=== PATIENT | female | born 1960 | race Caucasian/White ===

== ENCOUNTER → 2023-05-31 10:05 | Outpatient (REF) | payer OTHER, SELFPAY | LOC: PAVMRI 10:05 | PROVIDERS: ATTENDING PHYSICIAN Physician Assistant; FAMILY PHYSICIAN Family Medicine; REFERRING PHYSICIAN Orthopaedic Surgery | DX: M25.511 Pain in right shoulder (principal) | CPT/HCPCS: 73221 ==

== ENCOUNTER → 2023-06-05 16:11 | Outpatient (REF) | payer OTHER, SELFPAY | LOC: RAD 16:11 | PROVIDERS: ATTENDING PHYSICIAN Internal Medicine Cardiovascular Disease | DX: M25.532 Pain in left wrist (principal) | CPT/HCPCS: 73110 ==

== ENCOUNTER → 2023-06-14 07:37 | Outpatient (REF) | payer OTHER, SELFPAY | LOC: EMG 07:37 | PROVIDERS: ATTENDING PHYSICIAN Orthopaedic Surgery; FAMILY PHYSICIAN Family Medicine | DX: R20.0 Anesthesia of skin (principal) | CPT/HCPCS: 95886; 95909 ==

== ENCOUNTER → 2023-07-12 10:29 | Outpatient (REF) | payer OTHER, SELFPAY | LOC: WDC 10:29 | PROVIDERS: ATTENDING PHYSICIAN Physician Assistant Medical; FAMILY PHYSICIAN Student in an Organized Health Care Education/Training Program | DX: Z12.31 Encounter for screening mammogram for malignant neoplasm of breast (principal); Z78.0 Asymptomatic menopausal state; Z13.820 Encounter for screening for osteoporosis | CPT/HCPCS: 77063; 77067; 77080 ==

== ENCOUNTER → 2023-08-21 06:38 | Day surgery (SDC) | payer OTHER, SELFPAY | LOC: GI 06:38 | PROVIDERS: ATTENDING PHYSICIAN Internal Medicine Gastroenterology; FAMILY PHYSICIAN Internal Medicine Cardiovascular Disease | DX: Z12.11 Encounter for screening for malignant neoplasm of colon (principal); D12.4 Benign neoplasm of descending colon; D12.3 Benign neoplasm of transverse colon; D12.2 Benign neoplasm of ascending colon | CPT/HCPCS: 45385; 88305 ==

== ENCOUNTER → 2024-01-10 09:49 | Outpatient (REF) | payer OTHER, SELFPAY | LOC: RCS 09:49 | PROVIDERS: ATTENDING PHYSICIAN Specialist; FAMILY PHYSICIAN Family Medicine | DX: Z01.810 Encounter for preprocedural cardiovascular examination (principal) | CPT/HCPCS: 93005 ==

== ENCOUNTER → 2024-03-28 13:26 | Outpatient (REF) | payer OTHER, SELFPAY | LOC: RAD 13:26 | PROVIDERS: ATTENDING PHYSICIAN Specialist | DX: Z96.651 Presence of right artificial knee joint (principal); M25.562 Pain in left knee | CPT/HCPCS: 73560; 73565 ==

== ENCOUNTER 2024-04-03 10:33 | Emergency (ER) | payer OTHER, SELFPAY ==
[2024-04-03 10:37] VITALS: BP 135/74
--- NOTE | 2024-04-03 11:19 | ED.GENMED ---
History of Present Illness
General
Chief Complaint: Cold/Flu/URI Symptoms
Time Seen by Provider: 04/03/24 10:56
History of Present Illness
History of Present Illness:
63-year-old female presents to the emergency department for evaluation of severe headache, cough, general malaise, body aches, and fever beginning 2 days ago. Patient saw her primary care physician today and was diagnosed with influenza. Sent to
the ED for further evaluation. Denies any chest pain or leg swelling. Multiple ill family members at home.
Past History
Past History
ED Past Medical History: Other (Back pain, migraines)
ED Past Surgical History: Gynecological (Hysterectomy) and Orthopedic (Right knee replacement)
Social History
Tobacco: Non-smoker
Alcohol: Occasional
Personal:
Living: alone
Employment: Employed
Review of Systems
Review of Systems
Allergies reviewed?: Yes
All Other Systems: ROS reviewed and negative except as documented in HPI and ROS
Phy Exam
Physical Exam
Physical Exam:
GEN: Well appearing, NAD, WDWN
HEENT: Oral mucosa moist, no scleral icterus
Cardiac: Regular rate and rhythm, no murmur
Lung: No respiratory distress, no tachypnea, lungs clear to auscultation bilaterally
MSK: No gross deformity or injuries
Skin: Good color, no pallor or jaundice, no rashes
Neuro: AO x3, cranial nerves II through XII grossly intact, moves all extremities freely
Psych: Calm, cooperative
Course
Orders/Labs/Results
Orders:
Orders
04/03/24 11:23
0.9% Sodium Chloride 1000 ml [Nss] 1,000 ml IV BOLUS
Ketorolac [Toradol] 15 mg IV NOW STA
Magnesium Sulfate 2 Gram/50 ml [Magnesium Sulfate] 2 gram in 50 ml IV NOW
Metoclopramide [Reglan] 10 mg IV NOW STA
Vital Signs
Initial and Last Documented VS:
Initial Vital Signs
Temp Pulse Resp BP Pulse Ox
98.2 F 74 16 135/74 98
04/03/24 10:37 04/03/24 10:37 04/03/24 10:37 04/03/24 10:37 04/03/24 10:37
Last Documented Vital Signs
Temp Pulse Resp BP Pulse Ox
98.2 F 73 19 111/70 93
04/03/24 10:37 04/03/24 12:45 04/03/24 12:45 04/03/24 12:00 04/03/24 12:45
MDM/Problems Addressed
MDM/Problems Addressed:
Patient given supportive treatment for fever/headache with modest improvement. No clinical signs of respiratory distress, vital signs normal. Do not see any rationale for Tamiflu at this point, discussed supportive care and return parameters
*Critical Care Note
Total Time (30-74mins, 75-104mins- exclusive of procedures): Not Applicable
ED Attending Note
-
Portions of this chart may have been created with voice recognition software.� Occasional wrong word or��sound alike� substitutions may have occurred due to the inherent limitations of voice recognition software.
Discharge Plan
Departure
Patient Disposition: Home (Routine Discharge)
Date of Disposition: 04/03/24
Time of Disposition: 12:48
Patient with high blood pressure during this ER visit?: No
Discharge Problem:
Influenza A
Instructions: Flu in adults - ED discharge instructions
Prescriptions:
New
jfcdmnjakd-cmseroxwfetax-zipw [Fioricet] 50-300-40 mg capsule
1 cap PO Q8H PRN (Reason: Pain) Qty: 10 0RF
No Action
ibuprofen [Advil] 200 MG tablet
800 mg PO PRN PRN (Reason: pain)
Patient Comments:
while ago
valacyclovir 500 MG tablet
500 mg PO TID
sennosides [senna] 1 TABLET tablet
2 tab PO BID Qty: 0 0RF
acetaminophen 325 MG tablet
650 mg PO Q4HWA Qty: 0 0RF
tramadol 50 MG tablet
50 mg PO Q6H Qty: 90 0RF
Rx Instructions:
dx tka
1-2 tabs
magnesium hydroxide 30 ML suspension
30 ml PO DAILYPRN PRN (Reason: constipation) Qty: 0 0RF
aspirin 325 MG tablet,delayed release (DR/EC)
325 mg PO DAILY Qty: 0 0RF
docusate sodium 100 MG capsule
100 mg PO BID Qty: 0 0RF
gabapentin 100 MG capsule
100 mg PO TID Qty: 90 0RF
methylprednisolone [Medrol (Marco)] 4 mg tablets,dose pack
See Rx Instructions .ROUTE .COMPLEX Qty: 21 0RF
Rx Instructions:
orally per package directions
lidocaine HCl [Lidocaine Viscous] 2 % solution
1 applic mucous membrane Q6H PRN (Reason: pain) Qty: 600 0RF
Referrals:
Milan Akhtar MD [Family Provider] -
Interventions
Interventions:
*Risk Screen - Suicide Last Done: 04/03/24 10:40
*General Assessment Last Done: 04/03/24 11:47
*Neglect/Abuse Screening Last Done: 04/03/24 10:40
ED- Fall Risk Assessment Last Done: 04/03/24 13:02
*ED COVID-19 Vaccine History Last Done: 04/03/24 11:47
*Nursing Disposition Last Done: 04/03/24 13:02
ED- Pulmonary Assessment Last Done: 04/03/24 11:47
Discharge Date and Time
Discharge Date/Time: 04/03/24 13:05
Print Language: SAMI
[2024-04-03] MEDS: NSS 1000 IV (11:35)
[2024-04-03] MEDS: MAGNESIUM SULFATE 50 IV (11:35)
[2024-04-03] MEDS: REGLAN 10 MG IV (11:36)
[2024-04-03] MEDS: TORADOL 15 MG IV (11:36)
[2024-04-03 11:43] VITALS: BP 109/75
[2024-04-03 12:00] VITALS: BP 111/70
== END 2024-04-03 13:05 | disposition home or self-care (01) ==
LOC: EMR 10:33
PROVIDERS: EMERGENCY PHYSICIAN Emergency Medicine; FAMILY PHYSICIAN Specialist
DX: J10.1 Influenza due to other identified influenza virus with other respiratory manifestations (principal)
CPT/HCPCS: 99284; 96374; 96375 ×2

== ENCOUNTER 2024-06-28 18:39 | Emergency (ER) | payer OTHER, SELFPAY ==
[2024-06-28 18:39] VITALS: BMI 25.7
[2024-06-28 18:48] VITALS: BP 152/93
[2024-06-28 19:01] LABS: % Basophils 0.5 % (0-2); % Eosinophils 7.1 % (0-6); % Immature Granulocytes 0.3 % (0-0.5); % Lymphocytes 24.4 % (20.5-51.1); % Neutrophils 55.7 % (42.2-75.2); Absolute Eosinophils 0.4 10^3/uL (0-0.7); Absolute Lymphocytes 1.4 10^3/uL (1.2-3.4); Absolute Monocytes 0.7 10^3/uL (0.1-0.6); Absolute Neutrophils 3.2 10^3/uL (1.4-6.5); Hematocrit 38.8 % (37.0-47.0); Hemoglobin 13.7 g/dL (12.0-16.0); Mean Corp Hgb Conc. 35.3 g/dL (33.0-37.0); Mean Corpuscular Hgb 32.2 pg (27.0-31.0); Mean Corpuscular Volume 91.1 fL (81.0-99.0); Mean Platelet Volume 8.7 fL (7.4-10.4); Nucleated Red Blood Cells % 0 %; Platelet Count 176 10^3/uL (130-400); Red Blood Cell Count 4.26 10^6/uL (4.20-5.40); Red Cell Dist. Width 12.9 % (11.5-14.5); White Blood Cell Count 5.7 10^3/uL (4.8-10.8)
[2024-06-28 19:18] LABS: ALT (SGPT) 13 U/L (0-35); AST (SGOT) 23 U/L (14-36); Albumin 4.3 g/dl (3.5-5.0); Alkaline Phosphatase 77 U/L (38-126); Blood Urea Nitrogen 14 mg/dl (7-17); Calcium 9.2 mg/dl (8.4-10.2); Carbon Dioxide 26 mmol/L (22-30); Chloride 102 mmol/L (98-107); Glucose 89 mg/dl (70-99); Potassium 4.4 mmol/L (3.5-5.1); Sodium 137 mmol/L (135-145); Total Bilirubin 0.8 mg/dl (0.2-1.3); Total Protein 7.1 g/dl (6.3-8.2); eGFR > 60.00
[2024-06-28 19:28] LABS: Troponin I < 0.012 ng/ml
[2024-06-28 21:09] VITALS: BP 139/81
[2024-06-28 22:00] VITALS: BP 130/86
[2024-06-28 22:59] LABS: Troponin I < 0.012 ng/ml
[2024-06-28] MEDS: ATIVAN 1 MG IV (23:22)
[2024-06-28] MEDS: ASPIRIN 325 MG PO (23:22)
[2024-06-28 23:25] VITALS: BP 130/77
[2024-06-29] MEDS: TORADOL 30 MG IV (01:45)
[2024-06-29 02:14] VITALS: BP 130/86
--- NOTE | 2024-06-29 02:14 | ED.GENMED ---
History of Present Illness
General
Chief Complaint: Chest Pain
Source: patient and family
Exam Limitations: none
Time Seen by Provider: 06/28/24 21:48
Nursing documentation reviewed up to this point in time: agreed with
History of Present Illness
History of Present Illness:
64-year-old female with past medical history of previous vertebral compression fractures, migraines presenting to the emergency department today with concerns of left-sided chest pressure starting this morning also described as a burning sensation
in her left armpit denies shortness of breath nausea vomiting or diaphoresis. Had similar episode last year that was diagnosed as costochondritis
Past History
Past History
ED Past Medical History: Other (Back pain, migraines)
ED Past Surgical History: Gynecological (Hysterectomy) and Orthopedic (Right knee replacement)
Social History
Tobacco: Non-smoker
Alcohol: Occasional
Personal:
Living: alone
Employment: Employed
Review of Systems
Review of Systems
Allergies reviewed?: Yes
All Other Systems: ROS reviewed and negative except as documented in HPI and ROS
Phy Exam
Physical Exam
Physical Exam:
GENERAL: Alert , in no apparent distress
EYE: pupils equal and reactive
NECK: Supple, no significant adenopathy.
ENT: o/p clr, mmm.
CARDIAC: Regular rate and rhythm .
LUNGS: Clear breath sounds bilaterally, no acute respiratory distress, no wheezes/rales/rhonchi
ABDOMEN: Soft, without focal tenderness, no r/g, no cvat
NEUROLOGICAL: Alert and oriented, no focal neuro deficits
SKIN: Warm and dry, skin intact.
MUSCULOSKELETAL: No edema, well perfused.
PSYCH: Normal and appropriate interaction.
Scores
Heart Score for Chest Pain Patients
STEMI patient?: No
History: Slightly or Non-Suspicious
ECG: Normal
Age: >45 - <65 years
Risk Factors: 1 or 2 Risk Factors
Troponin: </= Normal Limit
Heart Score for Chest Pain Patients: 2
Heart Score Risk: 2.5% MACE over next 6 weeks
Course
Orders/Labs/Results
Orders:
Orders
06/28/24 18:41
Electrocardiogram (*1) Urgent
Reason for Study: Chest Pain
EKG- Treatment ONCE
06/28/24 18:52
Complete Blood Count/With Diff Urgent
Comprehensive Metabolic Panel Urgent
Troponin I Urgent
06/28/24 21:38
Cardiac Monitoring- Treatment ONCE
IV Insert/Care/Rem.- Treatment PRN
O2 Therapy [RESP] Urgent
Titrate/Wean O2 to maintain O2 sat greater than (%): 90
Special Instructions: Maintain sats >/=90%
Pulse Ox/spot Check [RESP] Urgent
Quantity: 1
Special Instructions: ON ROOM AIR
06/28/24 22:06
CXR2 [CR Chest - 2 Views ] Urgent
Comment:
Reason For Exam: chest pain SOB
06/28/24 22:19
Troponin I Urgent
06/28/24 23:13
CT Chest PE Study Urgent
Comment:
Reason For Exam: left sided CP trouble breathing, clear lungs
Aspirin 325 mg PO NOW STA
Lorazepam [Ativan] 1 mg IV NOW STA
06/29/24 01:25
Ketorolac [Toradol] 30 mg IV NOW STA
Abnormal Lab Results
06/28/24
18:52
MCH 32.2 H pg
(27.0-31.0)
Absolute Monos (auto) 0.7 H 10^3/uL
(0.1-0.6)
Monocytes % 12.0 H %
(1.7-9.3)
Eosinophils % 7.1 H %
(0-6)
06/28/24 18:52
06/28/24 18:52
Vital Signs
Initial and Last Documented VS:
Initial Vital Signs
Temp Pulse Resp BP Pulse Ox
98.2 F 64 16 152/93 96
06/28/24 18:48 06/28/24 18:48 06/28/24 18:48 06/28/24 18:48 06/28/24 18:48
Last Documented Vital Signs
Temp Pulse Resp BP Pulse Ox
97.7 F 61 14 130/77 100
06/28/24 20:58 06/28/24 22:45 06/28/24 22:45 06/28/24 23:25 06/28/24 23:25
MDM/Problems Addressed
MDM/Problems Addressed:
64-year-old female presenting to the emergency department with concerns of left-sided chest discomfort. Here vital signs are normal patient no distress EKG normal troponin negative labs unremarkable chest x-ray without emergent findings. Patient
later that symptoms were ongoing concerning this patient was given aspirin also given Ativan as she claims she was very anxious. CT did not show any evidence of PE or other emergent findings. Incidental findings were discussed. Otherwise second
troponin negative as well. ACS very unlikely at this point symptoms improved patient advised her close outpatient follow-up with cardiology. Return precautions given.
*Critical Care Note
Total Time (30-74mins, 75-104mins- exclusive of procedures): Not Applicable
ED Attending Note
-
Portions of this chart may have been created with voice recognition software.� Occasional wrong word or��sound alike� substitutions may have occurred due to the inherent limitations of voice recognition software.
Discharge Plan
Departure
Patient Disposition: Home (Routine Discharge)
Date of Disposition: 06/29/24
Time of Disposition: 02:15
Patient with high blood pressure during this ER visit?: No
Condition: Good
Covid-19: Not Applicable
Discharge Problem:
Chest pain
Instructions: Chest Pain CBC Follow Up
Prescriptions:
No Action
ibuprofen [Advil] 200 MG tablet
800 mg PO PRN PRN (Reason: pain)
Patient Comments:
while ago
valacyclovir 500 MG tablet
500 mg PO TID
sennosides [senna] 1 TABLET tablet
2 tab PO BID Qty: 0 0RF
acetaminophen 325 MG tablet
650 mg PO Q4HWA Qty: 0 0RF
tramadol 50 MG tablet
50 mg PO Q6H Qty: 90 0RF
Rx Instructions:
dx tka
1-2 tabs
magnesium hydroxide 30 ML suspension
30 ml PO DAILYPRN PRN (Reason: constipation) Qty: 0 0RF
aspirin 325 MG tablet,delayed release (DR/EC)
325 mg PO DAILY Qty: 0 0RF
docusate sodium 100 MG capsule
100 mg PO BID Qty: 0 0RF
gabapentin 100 MG capsule
100 mg PO TID Qty: 90 0RF
methylprednisolone [Medrol (Marco)] 4 mg tablets,dose pack
See Rx Instructions .ROUTE .COMPLEX Qty: 21 0RF
Rx Instructions:
orally per package directions
lidocaine HCl [Lidocaine Viscous] 2 % solution
1 applic mucous membrane Q6H PRN (Reason: pain) Qty: 600 0RF
iobadtvwlz-npmvxtjblrhlr-dybk [Fioricet] 50-300-40 mg capsule
1 cap PO Q8H PRN (Reason: Pain) Qty: 10 0RF
Referrals:
Pedro Bailon MD [Family Provider] -
Activity Restrictions/Additional Instructions:
You came to the emergency department today with concerns of chest discomfort. Please help closely with cardiology and take an NSAID to help with discomfort. Return for any worsening, new or concerning symptoms.
Interventions
Interventions:
*Risk Screen - Suicide Last Done: 06/28/24 18:49
*Neglect/Abuse Screening Last Done: 06/28/24 18:49
ED- Cardiac Assessment Last Done: 06/28/24 22:44
Discharge Date and Time
Print Language: LIBYAN
== END 2024-06-29 02:55 | disposition home or self-care (01) ==
LOC: EMR 18:39
PROVIDERS: Emergency Medicine; EMERGENCY PHYSICIAN Emergency Medicine; FAMILY PHYSICIAN Family Medicine
DX: R07.89 Other chest pain (principal); Z90.710 Acquired absence of both cervix and uterus; Z96.651 Presence of right artificial knee joint
CPT/HCPCS: 99284; 96374; 96375; 71046; 71275; 80053; 84484; 85025; 93005; Q9967

== ENCOUNTER → 2024-07-15 07:34 | Outpatient (REF) | payer OTHER, SELFPAY | LOC: WDC 07:34 | PROVIDERS: ATTENDING PHYSICIAN Physician Assistant Medical | DX: Z12.31 Encounter for screening mammogram for malignant neoplasm of breast (principal) | CPT/HCPCS: 77063; 77067 ==

== ENCOUNTER → 2024-10-28 10:04 | Outpatient (REF) | payer OTHER, SELFPAY | LOC: HWRAD 10:04 | PROVIDERS: ATTENDING PHYSICIAN Family Medicine | DX: R07.81 Pleurodynia (principal); R29.6 Repeated falls | CPT/HCPCS: 71111 ==

== ENCOUNTER → 2025-01-08 09:19 | Outpatient (REF) | payer OTHER, SELFPAY | LOC: WDC 09:19 | PROVIDERS: ATTENDING PHYSICIAN Obstetrics & Gynecology Gynecology; FAMILY PHYSICIAN Physician Assistant Medical | DX: R92.2 Inconclusive mammogram (principal) | CPT/HCPCS: 76641 ==

== ENCOUNTER → 2025-03-10 20:46 | Outpatient (REF) | payer OTHER, SELFPAY | LOC: PAVMRI 20:46 | PROVIDERS: ATTENDING PHYSICIAN Physician Assistant; FAMILY PHYSICIAN Family Medicine | DX: M54.16 Radiculopathy, lumbar region (principal) | CPT/HCPCS: 72148 ==